=== PATIENT | female | born 1975 | race African-American/Black ===

== ENCOUNTER 2021-07-29 06:45 | Inpatient (IN) | payer OTHER ==
[2021-07-29] MEDS ORDERED: AMPICILLIN SODIUM 2 GM VIAL ONE (07:59)
[2021-07-29] MEDS ORDERED: OXYTOCIN 30 UNITS in 0.9% NS 30 UNIT/500 ML INFUS.BAG IVPB ONE (07:59)
[2021-07-29] MEDS: DEXTROSE 5%-LACTATED RINGERS 1,000 ML IV SCH ×2 (08:00→17:30)
[2021-07-29] MEDS ORDERED: AMPICILLIN - 2 GM in SODIUM CHLORIDE 100 ML IVPB ONE (08:02)
[2021-07-29] MEDS ORDERED: OXYTOCIN 30 UNITS in 0.9% NS 30 UNIT/500 ML INFUS.BAG IVPB SCH (08:15)
[2021-07-29 08:45] VITALS: BMI 38.6
[2021-07-29] MEDS ORDERED: AMPICILLIN SODIUM 1 GM VIAL ONE ×2 (11:24→15:42)
[2021-07-29] MEDS ORDERED: PROMETHAZINE HCL 25 MG/1 ML VIAL IVPB ONE (11:30)
[2021-07-29] MEDS ORDERED: BUTORPHANOL TARTRATE 2 MG/ML VIAL IVPB ONE (11:30)
[2021-07-29] MEDS: AMPICILLIN - 1 GM in SODIUM CHLORIDE 100 ML IVPB SCH ×2 (12:15→15:56)
[2021-07-29] MEDS ORDERED: CITRIC ACID/SODIUM CITRATE 30 ML UNIT-DOSE CUP PO ONE (19:47)
[2021-07-29] MEDS ORDERED: IBUPROFEN 600 MG TABLET (FP) PO PRN (19:49)
[2021-07-29] MEDS ORDERED: ONDANSETRON 4 MG/2 ML VIAL IVPUSH PRN (19:49)
[2021-07-29] MEDS ORDERED: morphine SULFATE/PF 1 MG/2 ML (2cc Syringe - QUVA) EP ONE (19:49)
[2021-07-29] MEDS ORDERED: ACETAMINOPHEN 325 MG TABLET (FP) PO PRN ×2 (19:49→21:36)
[2021-07-29] MEDS ORDERED: OXYTOCIN 20 UNITS in 0.9% NS 20 UNIT/1,000 ML INFUS.BAG IV ONE (20:00)
[2021-07-29] MEDS ORDERED: ELECTROLYTE-148 SOLN 1,000 ML IV SCH (20:00)
[2021-07-29] MEDS ORDERED: morphine SULFATE/PF 1 MG/2 ML (2cc Syringe - QUVA) ONE (20:02)
[2021-07-29] MEDS ORDERED: ePHEDrine SULFATE 50 MG/1 ML AMPULE ONE (20:03)
[2021-07-29] MEDS ORDERED: SODIUM CHLORIDE 0.9% P/F 10 ML VIAL IJ ONE ×2 (20:05→20:46)
[2021-07-29] MEDS ORDERED: ceFAZolin SODIUM 1 GM VIAL ONE (20:05)
[2021-07-29] MEDS ORDERED: KETOROLAC TROMETHAMINE 30 MG/1 ML VIAL ONE (20:46)
[2021-07-29] MEDS ORDERED: ONDANSETRON 4 MG/2 ML VIAL ONE (20:46)
[2021-07-29] MEDS ORDERED: DEXAMETHASONE SOD PHOSPHATE 4 MG/1 ML VIAL ONE (20:46)
[2021-07-29] MEDS ORDERED: OXYTOCIN 10 UNITS/ML VIAL ONE (20:46)
[2021-07-29] MEDS ORDERED: BENZOCAINE 20% 57 GM BOTTLE TP PRN (21:36)
[2021-07-29] MEDS ORDERED: IBUPROFEN 800 MG/8 ML IJ IVPB PRN (21:36)
[2021-07-29] MEDS ORDERED: METHYLERGONOVINE MALEATE 0.2 MG/1 ML AMP IM PRN (21:36)
[2021-07-29] MEDS ORDERED: OXYTOCIN 20 UNITS in 0.9% NS 20 UNIT/1,000 ML INFUS.BAG IV SCH (21:45)
[2021-07-30] MEDS: AMPICILLIN - 1 GM in SODIUM CHLORIDE 100 ML IVPB SCH ×2 (00:26→00:27)
[2021-07-30 08:31] LABS: BASO % 0.2 % (0-2.0); HEMOGLOBIN 8.7 GM/dL (10.7-15.3); MCH 21.2 pg (25.7-33.7); MCHC 31.2 g/dl (32.0-36.0); MEAN CELL VOLUME 68.1 fl (80-96); MEAN PLT VOLUME 8.5 fl (7.5-11.1); MONO % 7.7 % (3.8-10.2); NEUT % 80.1 % (42.8-82.8); PLATELET COUNT 314 10^3/uL (134-434); RBC 4.11 M/mm3 (3.60-5.2); RDW 19.7 % (11.6-15.6); WHITE BLOOD COUNT 13.7 K/mm3 (4.0-10.0)
[2021-07-30] MEDS ORDERED: oxyCODONE HCL 5 MG TABLET PO PRN (09:37)
[2021-07-30 10:36] LABS: ANISOCYTOSIS 3+; MACROCYTOSIS 0
[2021-07-30] MEDS: IBUPROFEN 600 MG TABLET (FP) PO PRN (16:18)
[2021-07-30] MEDS: SENNOSIDES/DOCUSATE COMBO (SENNA PLUS) TABLET (UD) PO PRN (21:17)
[2021-07-30] MEDS: SIMETHICONE 80 MG TAB.CHEW (FP) PO PRN (21:18)
[2021-07-30] MEDS: oxyCODONE HCL 5 MG TABLET PO PRN (21:18)
[2021-07-30] MEDS ORDERED: BISACODYL 10 MG SUPP.RECT RC PRN (21:37)
[2021-07-31] MEDS: IBUPROFEN 600 MG TABLET (FP) PO PRN ×4 (04:04→23:30)
[2021-07-31] MEDS: SIMETHICONE 80 MG TAB.CHEW (FP) PO PRN ×3 (04:04→23:30)
[2021-07-31] MEDS: oxyCODONE HCL 5 MG TABLET PO PRN ×2 (08:03→20:03)
[2021-07-31] MEDS: SENNOSIDES/DOCUSATE COMBO (SENNA PLUS) TABLET (UD) PO PRN (20:02)
[2021-08-01] MEDS: SIMETHICONE 80 MG TAB.CHEW (FP) PO PRN ×2 (04:38→10:06)
[2021-08-01] MEDS: IBUPROFEN 600 MG TABLET (FP) PO PRN ×2 (04:38→10:05)
[2021-08-01 11:09] VITALS: BP 116/70; PULSE 89; TEMP 98.1
== END 2021-08-01 12:35 | disposition home or self-care (01) | DRG 540 ==
LOC: JLDR 06:45 → J3W 23:16
PROVIDERS: ADMIT Obstetrics & Gynecology; ATTEND Obstetrics & Gynecology
PROC: 10D00Z1 Extraction of Products of Conception, Low, Open Approach (ICD-10-PCS; principal; 2021-07-29)
DX: O76 Abnormality in fetal heart rate and rhythm complicating labor and delivery (principal); O62.9 Abnormality of forces of labor, unspecified; O77.0 Labor and delivery complicated by meconium in amniotic fluid; O69.1XX0 Labor and delivery complicated by cord around neck, with compression, not applicable or unspecified; Z3A.40 40 weeks gestation of pregnancy; Z37.0 Single live birth
CPT/HCPCS: 36415; 85025; 88307-TC